=== PATIENT | female | born 2005 | race African-American/Black ===

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

== ENCOUNTER 2025-02-11 23:38 | Emergency (ER) | payer SELFPAY | END 2025-02-12 03:41 | disposition home or self-care (01) | LOC: ERS 23:38 | DX: T40.715A Adverse effect of cannabis, initial encounter (principal) | CPT/HCPCS: 99283 ==